=== PATIENT | male | born 1950 | race Caucasian/White ===

== ENCOUNTER → 2019-09-11 | Outpatient (CLI) | payer MEDICARE | LOC: COL.RAD 14:02 | DX: M16.12 Unilateral primary osteoarthritis, left hip (principal) | CPT/HCPCS: J3301; Q9967 ==

== ENCOUNTER → 2020-03-06 | Outpatient (CLI) | payer MEDICARE ==
[~2020-03-06] MED LIST: AMITRIPTYLINE H75 M1 PO; ASPI325T6 PO; CELEBREX 200MG200 MG PO; NORCO 325 MG-7.1 TAB PO; NORVASC 5MG5 MG/TAB PO; PRINIVIL20 MG PO; ROXICODONE 55 MG/TAB PO; SENOKOT S 50 MG1 TAB PO
== END ==
LOC: COL.LAB 08:00
DX: U07.1 COVID-19 (principal)

== ENCOUNTER 2020-03-30 06:34 | Day surgery (SDC) | payer MEDICARE ==
[~2020-03-30] VITALS: Ht 182.9 cm; Wt 116.6 kg
[2020-03-30] VITALS (11 sets, daily range): BP systolic 119–177; BP diastolic 71–95; PULSE 82–103; TEMP 98–99.4
[2020-03-30] MEDS ORDERED: NORVASC 5MG5 MG/TAB PO (07:29)
[2020-03-30] MEDS ORDERED: PRINIVIL20 MG PO (07:29)
[2020-03-30] MEDS ORDERED: AMITRIPTYLINE H75 M1 PO (07:30)
--- NOTE | 2020-03-30 08:24 | NUR ---
PT PREPPED FOR SURGERY. VSS, PT IS COVID POSITIVE ON LAST TEST. VANE VACA CRNA, DORA OR BAROMETERS CALIBRATOR NOTIFIED. PT ONLY HAS PERIODIC COUGH, ALL OTHER VITALS WNL.
--- NOTE | 2020-03-30 11:16 | NUR ---
Construction Project Coordinator met with the patient's , Kailey to complete initial intake. The patient was in surgery. The patient lives in [place] with Kailey. The patient has a walker and is independent with ADLs. The patient's PCP is Dr. Johnson in [place] and patient receives medications from [facility] in [place]. The patient does not have advanced directives in the EMR but Kailey was interested in DPOA-HC form. Form provided. The plan is for the patient to return home with oupatient PT at [facility] with Dana York. The appointmet is set for this week, at 1100. Kailey will provide transporation for the patient. There are no additional needs at this time
--- NOTE | 2020-03-30 14:12 | NUR ---
PATIENT TO ROOM 330 PER BED WITH REPORT FROM DENIS WISEMAN PACU@[id number]. PT IS A/O X3 LUNGS CTA, BOWEL SOUNDS PRESENT. DRESSING OF FOAM TAPEOVER GAUZE CDI. IV TO PUMP. SCDS AND TEDS BILATERALLY. PT VSS. PT DENIES PAIN AT THIS TIME.
--- NOTE | 2020-03-30 18:13 | NUR ---
PT VOIDING WITH NO ISSUES. HAS NOT BEEN UP YET WILL BRING WALKER LATER. PAIN CONTROLLED WITH PO PAIN MEDS.
--- NOTE | 2020-03-30 20:00 | NUR ---
Patient ambulated to restroom and approx. 20ft in hallway. Assessment complete. Lungs clear. Heart sounds normal. Bowels active x4-ABD firm and rounded. Pulses present throughout. IV right hand infusing without complications. Reports 6/10 pain and provided with PRN oxycodone. Denies needs at this time. Call light in reach.
--- NOTE | 2020-03-30 22:00 | NUR ---
Resting in bed. Denies needs. Call light in reach.
--- NOTE | 2020-03-31 00:43 | NUR ---
Reporting 5/10 pain after ambulating to restroom. Given PRN percocet at this time. Call light in reach.
--- NOTE | 2020-03-31 00:43 | NUR ---
Reporting 5/10 pain after ambulating to restroom. Given PRN oxycodone at this time. Call light in reach.
[2020-03-31 02:18] VITALS: TEMP 98.6
[2020-03-31 03:36] VITALS: BP 136/78; PULSE 100; TEMP 98.8
--- NOTE | 2020-03-31 03:42 | NUR ---
Resting in bed. Denies needs. Call light in reach.
--- NOTE | 2020-03-31 04:57 | NUR ---
Ambulated to restroom and returned to bed.
--- NOTE | 2020-03-31 05:34 | NUR ---
Patient required x2 doses of oxycodone for pain control throughout night. Able to ambulate to restroom x1 assist. Otherwise uneventful night. Resting in bed this AM. Call light in reach.
[2020-03-31 06:49] LABS: HEMATOCRIT 37.8 % (42.0-52.0); HEMOGLOBIN 12.9 g/dl (13.5-18.0)
--- NOTE | 2020-03-31 06:51 | NUR ---
Report given to IVONE Glover
[2020-03-31 07:28] VITALS: BP 146/73; PULSE 102; TEMP 99
--- NOTE | 2020-03-31 09:54 | NUR ---
PT OUT TO [place] FOR THERAPY AMBULATING WITH SLOW HALTING GAIT.
--- NOTE | 2020-03-31 12:15 | NUR ---
First visit from the rn field. No needs right now.
[2020-03-31] MEDS ORDERED: ASPI325T6 PO (12:30)
[2020-03-31] MEDS ORDERED: CELEBREX 200MG200 MG PO (12:31)
[2020-03-31] MEDS ORDERED: NORCO 325 MG-7.1 TAB PO (12:31)
[2020-03-31] MEDS ORDERED: ROXICODONE 55 MG/TAB PO (12:32)
[2020-03-31] MEDS ORDERED: SENOKOT S 50 MG1 TAB PO (12:32)
[2020-03-31 12:35] VITALS: BP 146/73; PULSE 85; TEMP 98.5
--- NOTE | 2020-03-31 16:19 | NUR ---
PT DISCHARGE TO HOME. QUESTIONS ANSWERED.
== END 2020-03-31 16:00 | disposition home or self-care (01) ==
LOC: JCC 06:34 → SDCO 06:34 → EDSTATUS 07:30 → JCC 07:30 → SDCO 03-31 16:00 → JCC 03-31 16:00
PROVIDERS: Orthopaedic Surgery
DX: M16.12 Unilateral primary osteoarthritis, left hip (principal); Z88.8 Allergy status to other drugs, medicaments and biological substances; I10 Essential (primary) hypertension; J45.909 Unspecified asthma, uncomplicated; U07.1 COVID-19
CPT/HCPCS: A4314; A9284; C1713; C1776; J0690; J1100; J2250; J2370; J2405; J2704; J7030; J7050; J7120